=== PATIENT | male | born 1990 | race African-American/Black ===

== ENCOUNTER 2022-11-13 15:52 | Emergency (ER) | payer OTHER, MEDICAID, SELFPAY ==
--- NOTE | ~2022-11-13 | XR_ITS ---
EXAMINATION: XR FINGER, LEFT Indication: Trauma EXAMINATION: Left fourth finger 3 views Findings; Transverse fracture of the distal aspect of the distal phalanx. Mild distraction of the fracture fragment. 1 to 2 mm. XR/XR finger LT min 2V IMPRESSION: Positive for fracture transverse in nature distal aspect distal phalanx fourth digit
[2022-11-13 16:28] VITALS: BP 111/76; PULSE 58; RESP 18; TEMP 36.6; O2SAT 98; BMI 23.5
--- NOTE | 2022-11-13 16:28 | ED.GENADULT ---
HPI - General Adult General Chief complaint: Extremity Injury, Upper Stated complaint: ? broken finger work inj Time Seen by Provider: 11/13/22 19:53 Source: patient Mode of arrival: ambulatory Limitations: no limitations History of Present Illness HPI narrative: 32-year-old male with no major medical problems presents with left 4th digit pain. Patient was work when a truck door slammed onto his finger. Currently patient's pain is moderate to severe. Worse with palpation and movement. The pain does not radiate. There is no numbness or tingling. Patient believes tetanus vaccination is up-to-date from 2-3 years ago. Patient denies any additional injuries. Related Data Previous Rx's Medication Instructions Recorded cephalexin 500 mg capsule 500 mg PO Q8H #15 caps 11/13/22 Allergies Allergy/AdvReac Type Severity Reaction Status Date / Time lidocaine [LIDOCAINE] Allergy Unknown VOMITING Unverified 11/10/19 15:59 Review of Systems Review of Systems: CONSTITUTIONAL: Denies weight loss, fever and chills. HEENT: Denies changes in vision and hearing. RESPIRATORY: Denies SOB and cough. CV: Denies palpitations no CP. GI: Denies abdominal pain, nausea, vomiting and diarrhea. : Denies dysuria and urinary frequency. MSK: + myalgia and joint pain. SKIN: Denies rash and pruritus. NEUROLOGICAL: Denies headache and syncope. PSYCHIATRIC: Denies recent changes in mood. Denies anxiety and depression. All other ROS are negative unless in HPI PMFSH Social History Social History Advance Directives: No Advance Directives Information Provided: Yes Physical Exam ED Vital Signs: Vital Signs - 24 hr 11/13/22 16:28 Temperature 97.9 F Pulse Rate 58 Respiratory Rate 18 Blood Pressure 111/76 Pulse Oximetry 98 Oxygen Delivery Method Room Air BMI result Body Mass Index 23.5 GEN: Well developed, no acute distress, alert, oriented HEENT: Normocephalic, atraumatic, normal external ears, nose appears normal Eyes: Normal to appearance Neck: Supple, no lymphadenopathy Respiratory: Talks in complete sentences, no respiratory distress Extremities: No clubbing cyanosis or edema tenderness and swelling to the left 4th digit distal phalanx area with tenderness to palpation, mild active bleeding around the nail fold, no large subungual hematoma, no large lacerations Neurologic: No focal neurologic deficits, cranial nerves 2-12 intact, gait normal Skin: No rash Course Course Course Narrative: This is a rapid medical exam: Additional HPI, ROS, PE not included below will be deferred to primary provider. Patient is a 32-year-old right-hand dominant male presenting to the emergency department with complaint of left 4th finger injury. States he was closing a tractor trailer door and when he pulled it down it crushed the distal tip of his left 4th finger, reports numbness/tingling and laceration. Believes Tdap is UTD within 2 years. Small laceration to radial side of distal finger on dorsal side, small subungual hematoma to base of nail. Wedding ring removed in triage. Plan: x-ray Reevaluation(s) Reevaluation #1: Patient has a fracture of the distal phalanx of the left 4th digit. Patient will be referred to Occupational Health in hand surgery. Patient reports that his tetanus vaccine is up-to-date. I have recommended follow-up with his primary care provider to make sure that this is so and if not updated as tetanus vaccine. I will prophylactically a paced patient on antibiotics. He can take Tylenol ibuprofen for pain Time: 20:14 Medical Decision Making Medical Decision Making MDM Narrative: 32-year-old male presents with left 4th digit pain. Differential diagnosis includes fracture, contusion, subungual hematoma. Plan to obtain an x-ray. Patient reports tetanus vaccine is up-to-date. Differential Diagnosis Differential Diagnoses: The differential diagnosis associated with the presentation includes (See above) Independent Interpretation I performed an independent interpretation of an: Plain X-Ray (Transverse fracture through the distal aspect of the left 4th distal phalanx of the hand.) Radiology Impression Discussion of test interpretation with radiology: I have reviewed the radiologist's reading. Radiologist Impression: XR/XR finger LT min 2V IMPRESSION: Positive for fracture transverse in nature distal aspect distal phalanx fourth digit Dictated By: Johan Chau MD Signed By: <Electronically signed by Johan Chau MD in [facility]> 11/13/22 [id number] Prescription Management I considered prescription management with: Pain Medication and Antibiotic Discharge Plan Discharge Clinical Impression: Fracture of finger of left hand Qualifiers: Encounter type: initial encounter Finger: ring finger Fracture type: open Phalanx: distal Fracture alignment: nondisplaced Qualified Code(s): S62.665B - Nondisplaced fracture of distal phalanx of left ring finger, initial encounter for open fracture Patient Disposition: Home, Self-Care Instructions: Finger Fracture (ED) Prescriptions: New cephalexin 500 mg capsule 500 mg PO Q8H Qty: 15 0RF Referrals: [facility] [Provider Group] Betzaida Neal MD [Physician] - 5 days
[2022-11-13] MEDS: Ibuprofen 600 MG TABLET PO (20:47)
[2022-11-13] MEDS: Acetaminophen 325 MG TABLET 975 MG PO (20:47)
[2022-11-13] MEDS: cephALEXin 500 MG CAPSULE PO (20:48)
== END 2022-11-13 23:37 | disposition home or self-care (01) ==
PROVIDERS: Emergency Provider Emergency Medicine; PCP Family Medicine
DX: S62.665B Nondisplaced fracture of distal phalanx of left ring finger, initial encounter for open fracture (principal); S60.142A Contusion of left ring finger with damage to nail, initial encounter; W23.0XXA Caught, crushed, jammed, or pinched between moving objects, initial encounter; Y93.89 Activity, other specified; Y92.812 Truck as the place of occurrence of the external cause; Y99.0 Civilian activity done for income or pay
CPT/HCPCS: 73140; 99282; 99283

== ENCOUNTER 2023-01-09 12:45 | Outpatient (REF) | payer MEDICAID, SELFPAY ==
[2023-01-09 13:33] LABS: MANUAL DIFF FLAG NO
[2023-01-09 13:39] LABS: Hematocrit 43.3 % (42.0-52.0); Imm Gran Abs Auto 0.01 X10*3/uL (0.00-0.03); Imm Gran Pct Auto 0.2 % (0.0-0.4); Lymphocytes Absolute Auto 1.4 X10*3/uL (1.2-4.9); Lymphocytes Percent Auto 33.7 % (20-40); Mean Corpuscular HGB Conc 32.3 g/dl (31.0-36.0); Mean Corpuscular Hemoglobin 29.2 pg (27.0-33.0); Mean Corpuscular Volume 90.4 fL (80.0-98.0); Mean Platelet Volume 11.9 fL (9.4-12.4); Monocytes Absolute Auto 0.5 X10*3/uL (0.1-1.2); Monocytes Percent Auto 11.9 % (2-11); Neutrophils Absolute Auto 2.1 x10*3/uL (2.0-8.3); Neutrophils Percent Auto 52.2 % (45-73); Platelet Count 235 X10*3/uL (160-400); Red Blood Count 4.79 X10*6/uL (4.60-5.80); Red Cell Distribution Width 12.8 % (11.0-16.0)
[2023-01-09 14:14] LABS: Estimated Average Glucose 100 mg/dL; Hemoglobin A1c % 5.1 % (<6.0)
[2023-01-09 14:32] LABS: Alanine Aminotransferase 13 U/L (0-40); Albumin Level 4.7 g/dL (3.5-5.0); Alkaline Phosphatase 52 U/L (39-117); Anion Gap 10 (12-20); Aspartate Amino Transferase 20 U/L (5-37); Bilirubin Direct 0.3 mg/dL (0.0-0.5); Bilirubin Total 1.1 mg/dL (0.0-1.0); Blood Urea Nitrogen 18 mg/dL (9-16); Calcium 9.3 mg/dL (8.4-10.2); Carbon Dioxide 28 mmol/L (22-29); Chloride 106 mmol/L (96-108); Cholesterol 176 mg/dL (<200); Estimated Glomerular Filt Rate > 60; Glucose Random 89 mg/dL (60-115); HDL Cholesterol 57 mg/dL (>40); LDL Cholesterol Calculated 110 mg/dL (<100); Potassium 4.2 mmol/L (3.3-5.1); Sodium 140 mmol/L (135-145); Total Protein 7.6 g/dL (6.5-8.0); Triglycerides 48 mg/dL (<150)
[2023-01-09 14:43] LABS: Prostate Specific Antigen 0.29 ng/mL (<0.05-4.0)
[2023-01-09 14:48] LABS: Free T4 (Free Thyroxine) 0.98 ng/dL (0.71-1.85); Thyroid Stimulating Hormone 1.07 uIU/mL (0.32-4.0); Vitamin D 25-OH Total 31.8 ng/mL (>30)
[2023-01-09 16:26] LABS: Appearance Urine Clear; Color Urine Yellow; Glucose Urine UA Negative (Negative); Leukocyte Esterase Urine Negative (Negative); Nitrite Urine Negative (Negative); PH 5.5 (5.0-9.0); Specific Gravity - Urine 1.025 (1.005-1.025); UMIC TRIGGER UA YES; Urine Blood Negative (Negative); Urine Ketones Negative (Negative); Urine Protein 30 (1+) mg/dL (Neg-Trace)
[2023-01-09 16:32] LABS: Bacteria Urine None Seen (None Seen); Hyaline Casts Urine 0-2 /LPF (0-2); RBC Urine 0-2 /HPF (0-2); Squamous Epithelial Cell Urine 0-2 /HPF (0-2); WBC Urine 0-5 /HPF (0-5)
[2023-01-10 04:50] LABS: CT PCR NOT DETECTED (Not Detect.); NG PCR NOT DETECTED (Not Detect.)
[2023-01-12 11:53] LABS: Calcium (PTHI) 9.9 mg/dL (8.6-10.3); PTHI 43 pg/mL (16-77)
[2023-01-12 13:18] LABS: Calcium, Ionized 5.1 mg/dL (4.7-5.5)
== END 2023-01-09 12:46 | disposition home or self-care (01) ==
LOC: HO.HHCL 12:45
PROVIDERS: Visit Provider Family Medicine
DX: Z12.5 Encounter for screening for malignant neoplasm of prostate (principal); Z11.3 Encounter for screening for infections with a predominantly sexual mode of transmission; E83.52 Hypercalcemia; R35.1 Nocturia
CPT/HCPCS: 0353U; 36415; 80048; 80061; 80076; 81001; 82306; 82330; 83036; 83970; 84153; 84439; 84443; 85025; 87086

== ENCOUNTER 2023-07-30 15:51 | Outpatient (REF) | payer OTHER, SELFPAY ==
--- NOTE | ~2023-07-30 | XR_ITS ---
EXAMINATION: XR KNEES, BILATERAL CLINICAL INFORMATION: Bilateral knee discomfort, tightness. COMPARISON: August 30, 2015 TECHNIQUE: 4 views of each knee. FINDINGS: Left Knee: The medial and lateral compartments are preserved. Tiny posterior patellar osteophytes. Slight lateral tilt of the patella. Trace joint effusion. Right Knee: Medial and lateral compartments are preserved. Trace joint effusion. Slight lateral tilt of the patella on the sunrise view. XR/XR knee LT 4V IMPRESSION: 1. Mild degenerative changes left knee. 2. Trace right knee joint effusion.
--- NOTE | ~2023-07-30 | XR_ITS ---
EXAMINATION: XR KNEES, BILATERAL CLINICAL INFORMATION: Bilateral knee discomfort, tightness. COMPARISON: August 30, 2015 TECHNIQUE: 4 views of each knee. FINDINGS: Left Knee: The medial and lateral compartments are preserved. Tiny posterior patellar osteophytes. Slight lateral tilt of the patella. Trace joint effusion. Right Knee: Medial and lateral compartments are preserved. Trace joint effusion. Slight lateral tilt of the patella on the sunrise view. XR/XR knee RT 4V IMPRESSION: 1. Mild degenerative changes left knee. 2. Trace right knee joint effusion.
== END 2023-07-30 15:52 | disposition home or self-care (01) ==
LOC: HO.XRAY 15:51
PROVIDERS: PCP Family Medicine; Visit Provider Family Medicine
DX: M25.50 Pain in unspecified joint (principal)
CPT/HCPCS: 73564

== ENCOUNTER → 2023-08-21 19:30 | Outpatient (REF) | payer OTHER, SELFPAY | LOC: HO.SL 19:30 | PROVIDERS: PCP Family Medicine; Visit Provider Family Medicine | DX: Z13.89 Encounter for screening for other disorder (principal) ==